=== PATIENT | female | born 1950 | race Caucasian/White ===

== ENCOUNTER 2017-10-24 05:26 | Day surgery (SDC) | payer MEDICARE ==
[~2017-10-24] VITALS: Ht 177.8 cm; Wt 87.0 kg
[2017-10-24] VITALS (9 sets, daily range): BP systolic 102–120; BP diastolic 71–97; PULSE 86–97; RESP 16–20; TEMP 97.6–98.9; O2SAT 90–100
[2017-10-24] MEDS ORDERED: SODIUM CHLORID 0.9% 500 ML IV PRN (06:00)
[2017-10-24] MEDS ORDERED: METOPROLOL TARTRATE 25 MG TAB PO PRN (06:00)
[2017-10-24] MEDS ORDERED: CHLORHEXIDINE GLUCONATE 2 % 1 PACK (2 CLOTHS) TOPICAL PRN (06:00)
[2017-10-24] MEDS ORDERED: POVIDONE IODINE 5% (ANTISEPSIS KIT) 4 APPLICATIONS EACH NARE PRN (06:00)
[2017-10-24] MEDS ORDERED: LACTATED RINGER'S 1000 ML IV PRN (06:00)
[2017-10-24] MEDS ORDERED: AMBI10TA PO (06:10)
[2017-10-24] MEDS ORDERED: SOMA350T PO (06:10)
[2017-10-24] MEDS ORDERED: FURO20TA PO (06:10)
[2017-10-24] MEDS ORDERED: METO25TA3 PO (06:10)
[2017-10-24] MEDS ORDERED: ECASA81 PO (06:10)
[2017-10-24] MEDS ORDERED: POTA10CA PO (06:10)
[2017-10-24] MEDS ORDERED: GABA600T PO (06:10)
[2017-10-24] MEDS ORDERED: LORA1TAB12 PO (06:10)
[2017-10-24] MEDS ORDERED: AMIO200T PO (06:10)
[2017-10-24] MEDS ORDERED: PRAV20TA2 PO (06:10)
[2017-10-24] MEDS ORDERED: PLAV75TA29 PO (06:10)
[2017-10-24] MEDS ORDERED: MIRT45TA PO (06:10)
[2017-10-24] MEDS ORDERED: NITR1SUB3 SL (06:10)
[2017-10-24] MEDS ORDERED: ceFAZolin 2 GM PREMIX 50 ML IV SCH (06:15)
[2017-10-24] MEDS ORDERED: VANCOMYCIN 1000 MG/NS 250 ML IV SCH ×2 (06:15)
[2017-10-24] MEDS ORDERED: POVIDONE IODINE 5% (ANTISEPSIS KIT) 4 APPLICATIONS EACH NARE SCH (06:15)
[2017-10-24] MEDS ORDERED: MUPIROCIN 2% OINT 1 APPLIC/GM SYR NASAL SCH (06:15)
[2017-10-24] MEDS: NS 1000 ML IV SCH (06:15)
[2017-10-24] MEDS ORDERED: LORazepam 1 MG TAB SL SCH (06:15)
[2017-10-24] MEDS ORDERED: CHLORHEXIDINE GLUCONATE 2 % 1 PACK (2 CLOTHS) TOPICAL SCH (06:15)
[2017-10-24 06:50] LABS: AUTOMATED NEUTROPHIL # 3.7 TH/MM3 (1.8-7.7); BASOPHIL % 0.8 % (0.0-2.0); EOSINOPHIL # 0.1 TH/MM3 (0-0.4); HEMATOCRIT 39.1 % (35.0-46.0); HEMOGLOBIN 13.2 GM/DL (11.6-15.3); LYMPH % 33.1 % (9.0-44.0); LYMPHOCYTE # 2.1 TH/MM3 (1.0-4.8); MEAN CORPUSCULAR HEMOGLOBIN 32.1 PG (27.0-34.0); MEAN CORPUSCULAR HGB CONC 33.8 % (32.0-36.0); MEAN PLATELET VOLUME 8.6 FL (7.0-11.0); MONO % 5.6 % (0.0-8.0); MONOCYTE # 0.4 TH/MM3 (0-0.9); NEUT % 58.5 % (16.0-70.0); PLATELET COUNT 197 TH/MM3 (150-450); RED BLOOD COUNT 4.11 MIL/MM3 (4.00-5.30); RED CELL DISTRIBUTION WIDTH 15.2 % (11.6-17.2); WHITE BLOOD COUNT 6.3 TH/MM3 (4.0-11.0)
[2017-10-24 07:06] LABS: INTERNATIONAL NORMALIZED RATIO 1.1 RATIO; PROTHROMBIN TIME - PATIENT 10.9 SEC (9.8-11.6)
[2017-10-24 07:08] LABS: BICARBONATE 27.7 MEQ/L (21.0-32.0); CALCIUM 8.5 MG/DL (8.5-10.1); CREATININE 1.3 MG/DL (0.50-1.00)
[2017-10-24] MEDS ORDERED: LIDOCAINE HCL 2% 50 ML VIAL ONE (07:44)
[2017-10-24] MEDS ORDERED: VANCOMYCIN 500 MG VIAL ONE (07:44)
--- NOTE | 2017-10-24 08:19 | CATHPROC ---
[facility] HIS Report Study Information Study Number Admission Scheduled Start Study Start [id number] Oct 24 2017 5:26AM 10/24/2017 Oct 24 2017 6:52AM [facility] Electrophysiology Study Admit Source Facility Department Other [facility] - Airway Controller Physician and Clinical Staff Initial Diana Durand Compensation Associate Gisele Abdullahi,THREAD CLIPPER Recorder Sofi Landry ,MARBELLAN Scrub Natividad Bella,RT(R) TECH2 Equipment Time Intervention Manager Description Size Mfg Part Number Used/Scraped [id number] 06:55 MEDLINE INDUSTRIES PACK, CCL CUSTOM * Used *[id number] 06:55 MEDLINE PACER HIDALGO, LIMB * 2530 *[id number] Used [id number] 07:33 NAMIC TUBING, HIGH PRESSURE 48" 48" Used *[id number] 06:55 SMALL MEDICAL BLANKET,WARM AIR CCL * Used *[id number] 06:57 [employer] MED[employer] CATHETER, JSN, QUAD FR 5 Used *[id number] [id number] 06:57 [employer] MED[employer] CATHETER, JSN, QUAD FR 5 Used *[id number] 06:57 [employer] MEDICAL CATHETER, JSN, QUAD FR 5 Used *[id number] 06:57 [employer] MEDICAL CATHETER, JSN, QUAD FR 5 Used *[id number] 06:57 [employer] MED[employer] SHEATH, EPS, FR5 FAST CATH FR 5 Used *[id number] 06:57 [employer] SHEATH, EPS, FR5 FAST CATH FR 5 Used *[id number] 06:57 [employer] MED[employer] SHEATH, EPS, FR5 FAST CATH FR 5 Used *[id number] 07:34 [employer] MED[employer] SHEATH, EPS, FR6 FAST CATH FR 6 Used *[id number] Labs Hgb (g/dl) Hct (%) RBC (MIL/MM3) WBC (l/cumm) Platelets (thousands) 11.60-17.00 35.00-51.00 4.00-5.90 4.00-11.00 150.00-450.00 13.2 39.1 4.1 6.3 197 Medication Medication Total Dose (Bolus/Oral) Medication Total Dosage/Unit 1% XYLOCAINE 20 mL Medications (Bolus/Oral) Medication Time Given Dosage/Unit Administered By Reason 1% XYLOCAINE 10/24/2017 7:58:42 AM 20 mL Diana Dupont 20 mL 1% XYLOCAINE given in lab by Diana Dupont in Right Groin via Subcutaneous. Medication (Drip) Medication Time Given Dosage/Unit Concentration/Unit Diluent (ml) Solution IV Solutions 10/24/2017 7:32:08 AM 50 mL (IV) NaCl .9 Patient arrived on IV Solutions in Left Forearm via Peripheral IV. Pump/Drip Flow using NaCl .9 at kv o. Ordered by Diana Dupont. Initial Case Assessment Cardiovascular HR Rhythm NIBP Chest Pain 91 sr 122/78 0 Edema Present Skin color Skin None Normal Warm Dry Circulatory - Lower Extremities Color Lower Right Color Lower Left Normal Normal Neurological State Oriented to time-place- Alert Moves all extremities person Respiration - General Respiration Rate SpO2 (%) O2 (lpm) (B/min) 16 97 0 Chronological Log Time Study Chronological Log 7:15:26 Patient arrived via Bed. 7:16:30 Patient Name, D.O.B, / Armband Verified By R.N. 7:16:33 Consent signed by the physician and the patient and verified by the Airway Controller staff. 7:25:39 Anesthesia at bedside. Assumes care of patient. See anesthesia flowsheet for Q5min vitals 7:26:49 Patient has been NPO for More than 6Hrs. 7:27:55 Skin Breakdown- none per patient 7:28:14 Patient Warmer Placed on the Table. 7:29:21 Disposable Defibrillator Pads Placed On Patient. Assessment: Initial Case, HR=91 BPM, Rhythm=sr, HBSH=394/78 mmhg, Chest Pain=0, Edema=None, [place] r=Normal, Skin = Warm, Dry Lower Right Extremities: Color=Normal 7:29:37 Lower Left Extremities: Color=Normal Neurological: State=Alert, Ox3, NETTLES Respiration: Resp=16 B/min, SpO2=97 %, O2=0 lpm 7:30:32 Carson Prominences Protected 7:31:39 A # 22 IV was noted in the Forearm (left). Grade = 0 Patient arrived on IV Solutions in Left Forearm via Peripheral IV. Pump/Drip Flow using NaCl .9 at kvo. Ordered by 7:32:08 Diana Dupont. 7:35:06 History and physical on the chart or being dictated. 7:35:12 Table restraints applied according to hospital policy 7:40:01 Bilateral groins prepped with 2% chlorhexidine, and draped after a 3 minute waiting time. 7:48:22 MD paged 7:48:35 Reference ECG taken 7:48:57 MD responded 7:53:01 MD arrived. Time Out. Correct patient, procedure, procedure equipment, site and side verified with physician present. Time 7:58:00 concurred by MD, individual staff and BUDGET TECHNICIAN. Time Out #2 - Consents verified, patient in correct position, all results are labled and display ed, safety precautions 7:58:27 taken, antibiotics administered. Time out concurred by MD, individual staff and BUDGET TECHNICIAN in procedur e 7:58:40 Case Start 7:58:42 20 mL 1% XYLOCAINE given in lab by Diana Dupont in Right Groin via Subcutaneous. 8:00:00 Vascular access was obtained in the Fem Vein (right). 8:00:05 Vascular access was obtained in the Fem Vein (right). 8:00:10 Vascular access was obtained in the Fem Vein (right). 8:00:15 Vascular access was obtained in the Fem Vein (right). 8:00:48 A SHEATH, EPS, FR5 FAST CATH FR 5 was advanced into the Fem Vein (right) using the Modified Seldinger technique. 8:00:57 A SHEATH, EPS, FR5 FAST CATH FR 5 was advanced into the Fem Vein (right) using the Modified Seldinger technique. 8:01:01 A SHEATH, EPS, FR5 FAST CATH FR 5 was advanced into the Fem Vein (right) using the Modified Seldinger technique. 8:01:03 A SHEATH, EPS, FR6 FAST CATH FR 6 was advanced into the Fem Vein (right) using the Modified Seldinger technique. A CATHETER, JSN, QUAD FR 5 was advanced vis Fem Vein (right) and placed in the HIS. Placement wa carla visually 8:02:42 confirmed under fluoroscopy. A CATHETER, JSN, QUAD FR 5 was advanced vis Fem Vein (right) and placed in the CS. Placement was visually 8:05:18 confirmed under fluoroscopy. A CATHETER, JSN, QUAD FR 5 was advanced vis Fem Vein (right) and placed in the RVA. Placement wa carla visually 8:06:00 confirmed under fluoroscopy. A CATHETER, JSN, QUAD FR 5 was advanced vis Fem Vein (right) and placed in the HRA. Placement wa s visually 8:07:10 confirmed under fluoroscopy. 8:08:20 EP study in progress 8:15:22 EP study complete 8:15:53 Catheter(s) removed without difficulty 8:18:06 NOTE: This patient is undergoing an additional procedure while still in the Cardiac Airway Controller . End Study - Contrast Media Used In Study Contrast Total Opened (mL) Total Used (mL) Total Wasted (mL) Omnipaque 0 0 0 End Study - Radiation Exposure Fluoro Time (minutes) 2.8 End Study - Patient Disposition Complications No
[2017-10-24] MEDS ORDERED: MIDAZOLAM HCL 2 MG/2 ML VIAL ONE (09:08)
--- NOTE | 2017-10-24 09:28 | PD.CARD ---
SINGLE CHAMBER DEFIB IMPLANT PROCEDURE DATE: Oct 24, 2017 NYHA Classification: Class II (Mild) Prevention: Primary Single Chamber Defib Implant PROCEDURE: Single chamber defibrillator implantation and device testing. INDICATIONS: Ms. Goddard is a 66 -year-old female with hx of congestive heart failure, coronary artery disease ejection fraction 20%, coronary artery disease , referred defibrillator implantation for sudden prevention. The risks, the nature and the benefit of the procedure are clearly stated to her . Risks include pneumothorax, cardiac perforation, stroke and even . She understood and agreed to proceed. PROCEDURE: As written, informed consent was obtained prior to electrophysiology, the patient was kept on the table where she was prepped and draped in the sterile fashion. Conscious sedation was initiated and maintained throughout the procedure by anesthesiologist. Once sedation was verified, the left infraclavicular area was anesthetized with 2% Xylocaine. Using modified Seldinger technique, the left subclavian vein was cannulated on one occasion and one guide wire was advanced. Then, using #11 blade scalpel, a 3-cm incision was made two fingerbreadths below left clavicle. This incision was then taken down to the deep fascial layer using Bovie cautery and blunt dissection. Into the inferomedial direction, a device pocket was dissected, then the wire was dissected into the pocket. A 2-0 Vicryl suture was placed around the wires to prevent bleeding. At this point, over the wire, the 9- Citizen Of [place] dilator and introducer was advanced. As dilator and wire were removed, an active fixation right ventricular pacing, sensing and defibrillatory lead was advanced. After adequate pacing and sensing thresholds were obtained, the lead was secured in the pocket with #2 Ethibond suture. At that point, the pocket was copiously irrigated with antibiotic solution. The leads were connected to the generator and placed into the pocket. I did proceed with wound closure. The deep fascial layer was approximated with 2-0 Vicryl suture in a continuous fashion. The subcutaneous layer was approximated with 2-0 Vicryl suture in a continuous fashion. The subcuticular layer was approximated with 2-0 Vicryl suture in a continuous fashion. Dermabond adhesive was applied to the wound, followed by a sterile pressure dressing. There was no complication. The patient tolerated procedure. Blood loss minimal. 1. Implanted Hardware: The implanted defibrillator generator is a Biotronik, model number 632018, serial number [id number]. The right ventricular pacing, sensing and defibrillatory lead is a SitatByoot.comroniWeaved model number 661101, serial number [id number]. 2. Thresholds: The right ventricular pacing threshold in the bipolar mode was 0.9 volts at 0.5 milliseconds, lead impedance 680 ohms and R-wave at 6.1 mV. Sensing P wave @ 5.8. 3. Settings: The device set in VVI 40 defibrillatory portion for two zones, one zone for ventricular tachycardia between 160 and 240 beats per minute. Initial therapy consists of one burst of ATP, one ramp, 81%, 10 pulse, 10 millisecond decremental, followed by 20, then 30 and all subsequent shocks at 40 joules defibrillatory shock, the second zone for ventricular fibrillation above 240 beats per minute, first therapy at 30 and all subsequent shocks at 40 joules defibrillatory shock. CONCLUSIONS: Successful defibrillator implantation. COMMENT AND RECOMMENDATIONS: The patient will be transferred to the telemetry unit, will be observed and when stable can be discharged home. Diana Dupont MD Oct 24, 2017 09:28
--- NOTE | 2017-10-24 09:31 | CATHPROC ---
[facility] HIS Report Study Information Study Number Admission Scheduled Start Study Start [id number] Oct 24 2017 5:26AM 10/24/2017 Oct 24 2017 8:20AM [facility] [place] [facility] Cardiac Pacer/ICD Admit Source Facility Department Other [facility] - First Helper Physician and Clinical Staff Initial Diana Durand Vice President Of Marketing Natividad Bella,RT(R) TECH2 Other Anesthesia, IT HELP DESK MANAGER Recorder Sofi Landry ,MARBELLAN Scrub Gisele Abdullahi RCIS Procedures Performed Procedure Lead Insertion Equipment Time Ice Carver Description Size Mfg Part Number Used/Scraped DEFIBRILLATOR, INTICA 7 VR-T 08:59 BIOTRONIK VVE-VDDR [id number] Used DX 08:50 BIOTRONIK LEAD, PLEXA PRO-MRI DF 65/15 [id number] Used DERMABOND, ADHESIVE SKIN [id number] 08:34 CORDIS/PACER * Used GLUE MINI *[id number] TP-1103 08:34 MEDLINE INDUSTRIES SUTURE, STRIP PLUS 1/2" * Used *[id number] 08:34 LiquidPlanner PACER HIDALGO, LIMB * 2530 *[id number] Used [id number] 08:34 LiquidPlanner PACER PACK, PACER CUSTOM * Used *[id number] 08:34 [employer] PACER SAFE SHEATH, FR8, 13CM FR 8 [id number] Used 08:33 Needle Sponge Count 2 22 Used 08:33 Needle Sponge Count 2 2 Used 08:33 Needle Sponge Count 20 200 Used SUTURE, 0 ETHIBOND [CT1] (CX21D), 8pk SUTURE, 2-0 VICRYL [CT1] ([id number]) SUTURE, 2-0 VICRYL [CT1] ([id number]) [id number] 08:34 [place] MEDICAL BLANKET,WARM AIR CCL * Used *[id number] [facility], ELECTROSURGICAL 08:34 * [id number] *[id number] Used SURGICAL GROUNDING ORANGE 5745-6017 08:34 [employer] ALEXANDRA. / * Used *87545 Equipment Model, Serial, Lot Number and Expiration Data Description Model Number Serial Number Lot Number Expiration Date DEFIBRILLATOR, INTICA 7 VR-T DX [id number] 01-18-2019 LEAD, PLEXA PRO-MRI DF 65/15 [id number] 09-20-2019 Medication Medication Total Dose (Bolus/Oral) Medication Total Dosage/Unit 2% XYLOCAINE 10 mL Medications (Bolus/Oral) Medication Time Given Dosage/Unit Administered By Reason 2% XYLOCAINE 10/24/2017 8:47:38 AM 10 mL Diana Dupont 10 mL 2% XYLOCAINE given in lab by Anesthesia, IT HELP DESK MANAGER in Left chest via Subcutaneous. Ordered by Diana Dupont. Medication (Drip) Medication Time Given Dosage/Unit Concentration/Unit Diluent (ml) Solution ANCEF 10/24/2017 8:17:57 AM 2 g 2 g ANCEF given in lab by Anesthesia, IT HELP DESK MANAGER in Left Forearm via Peripheral IV. Ordered by Andres Dupont VANCOMYCIN DRIP 10/24/2017 8:17:10 AM 1 g 1 g VANCOMYCIN DRIP given in lab by Anesthesia, IT HELP DESK MANAGER in Left Forearm via Peripheral IV. Ordered by Diana Allred. Final Case Assessment Cardiovascular HR Rhythm NIBP Chest Pain 92 sr 110/81 0 Edema Present Skin color Skin None Normal Warm Dry Circulatory - Lower Extremities Color Lower Right Color Lower Left Normal Normal Neurological State Oriented to time-place- Lethargic Moves all extremities person Respiration - General Respiration Rate SpO2 (%) O2 (lpm) (B/min) 12 98 2 Chronological Log Time Study Chronological Log 8:17:10 1 g VANCOMYCIN DRIP given in lab by Anesthesia, IT HELP DESK MANAGER in Left Forearm via Peripheral IV. Ord ered by Diana Dupont. 8:17:57 2 g ANCEF given in lab by Anesthesia, IT HELP DESK MANAGER in Left Forearm via Peripheral IV. Ordered by Diana Allred. 8:23:02 Initial procedure has been completed. Beginning additional procedure. 8:23:03 NOTE: This patient is undergoing an additional procedure while still in the Cardiac Cath La b. 8:23:04 Disposable Defibrillator Pads remain On Patient. 8:23:13 Bovie ground pad applied to: right thigh 8:23:42 Anesthesia remains at bedside. See anesthesia flowsheet for 5 min vitals 8:28:38 2% CHLORHEXIDINE GLUCONATE WASH AND NASAL SWIPE DONE PRIOR TO PROCEDURE. 8:29:06 Bilateral Upper Chest Prepped Times Two and draped after a 3 min. waiting time. 8:30:20 Reference ECG taken First Sponge And Instrument Count Done by Gisele Abdullahi RCIS. 8:32:36 Hypo's: 2, Sponges: 20, Bovie/scratch: 2 Sutures: 10, Blades: 1, Instruments: 26, Syveck Patches: 0 Time Out. Correct patient, procedure, procedure equipment, site and side verified with physici an present. Time 8:46:29 concurred by MD, individual staff and IT HELP DESK MANAGER. Time Out #2 - Consents verified, patient in correct position, all results are labled and displ ayed, safety precautions 8:46:30 taken, antibiotics administered. Time out concurred by MD, individual staff and IT HELP DESK MANAGER in proced ure 8:46:32 Case Start 8:47:38 10 mL 2% XYLOCAINE given in lab by Anesthesia, IT HELP DESK MANAGER in Left chest via Subcutaneous. Ordered by Diana Dupont. 8:48:12 Vascular access was obtained in the Subclav. Vein (Lft. 8:48:58 Surgical Incision Made. 8:49:05 A pocket was created at the L Upper Chest. 8:51:11 Two antibiotic sponges put into the surgical pocket. 8:52:03 A LEAD, PLEXA PRO-MRI DF 65/15 was inserted and positioned in the RV. 8:54:17 Lead placement verified under fluoroscopy 8:57:45 The RV lead impedance and threshold being tested. 9:02:36 The RV lead was sutured to the fascia. 9:03:48 Antibiotic sponges removed from the surgical pocket. 9:04:00 Pocket flushed with antibiotic solution 9:04:42 A DEFIBRILLATOR, INTICA 7 VR-T DX VVE-VDDR was connected and placed in the pocket. 9:06:15 The pocket is being closed. Second Sponge And Instrument Count Done by Natividad Bella, RT(R) TECH2. 9:06:39 Hypo's: 2, Sponges: 20, Bovie/scratch: 2 Sutures: 10, Blades: 1, Instruments: 26, Syveck Patches: 0 9:08:42 The pocket was closed. 9:09:05 Case End Final Sponge And Instrument Count Done by Natividad Bella, RT(R) TECH2. 9:09:47 Hypo's: 2, Sponges: 20, Bovie/scratch: 2 Sutures: 10, Blades: 1, Instruments: ~INSTRU~, Syveck Patches: 0 9:10:11 Implant Procedure was performed. 9:10:15 A ICD Implant . (Single) 9:10:53 Steri-strips and a sterile dressing applied to site. Assessment: Final Case, HR=92 BPM, Rhythm=sr, NCZM=287/81 mmhg, Chest Pain=0, Edema=None, Color= Normal, Skin = Warm, Dry Lower Right Extremities: Color=Normal 9:12:52 Lower Left Extremities: Color=Normal Neurological: State=Lethargic, Ox3, NETTLES Respiration: Resp=12 B/min, SpO2=98 %, O2=2 lpm 9:13:57 A sling was placed on the affected arm. 9:14:02 No case complications noted. 9:14:04 Cine recording checked. 9:14:07 Holding Area notified of successful intervention. 9:14:12 Bedside Report will be given. 9:20:33 Sheath removed; pressure applied to access site. 9:30:54 Sterile dressing applied to site 9:35:20 Patient moved to stretcher End Study - Contrast Media Used In Study Contrast Total Opened (mL) Total Used (mL) Total Wasted (mL) Omnipaque 0 0 0 End Study - Radiation Exposure Fluoro Time (minutes) 1.8 End Study - Sheaths Sheaths Pulled By Sheath Hold Time (min) Natividad Bella 10 End Study - Patient Disposition Complications Transferred To No First Helper Holding
--- NOTE | 2017-10-24 11:48 | MA ---
cc: Diana Dupont MD 10/24/2017 PROCEDURE: Electrophysiology study, CS cannulation. INDICATION: Mrs. Goddard is a 66-year-old -[place]ij[place] female with history of congestive heart failure, coronary artery disease, cardiomyopathy, ejection fraction 20%, referred for electrophysiology study and device insertion. The risks, the nature and the benefit of the procedure are clearly stated to her. The risks include pneumothorax, cardiac perforation, stroke, need for open heart surgery and even . The patient understood and agreed to proceed. PROCEDURE: After written informed consent was obtained, the patient was brought to the EP lab where she was prepped and draped in the usual sterile fashion. Conscious sedation was initiated and maintained throughout the procedure by anesthesiologist. Once sedation was verified, the right inguinal area was anesthetized with 2% Xylocaine. Using modified Seldinger technique, the right femoral vein was cannulated on four occasions, four guidewires were advanced. Over the wire 3, 5 and a 6-Maltese Hemaquet were advanced. Then under fluoroscopic guidance 3.5 and 6-Maltese Hemaquet, 4.5 Maltese Lyndsay curved quadripolar electrophysiology catheter were advanced and placed around the His, upper right atrium, coronary sinus and left ventricular apex. Basic interval was measured and was within normal limit. At this point atrial pacing protocol was performed. Atrial pacing protocol consists of incremental atrial pacing as well as program stimulation with 410 cycle length and a 25 stimuli delivered. No tachyarrhythmia was induced. Then ventricular pacing protocol was performed. Ventricular pacing protocol consists of incremental ventricular pacing as well as program stimulation with 410 cycle length and up to 3 access stimuli delivered. ventricular tachycardia was induced. At that point heart rate was in the 110, 100. There is no need for isuprel infusion. The patient getting unstable. I decided to terminate the study. All catheters were removed. No incident report. The patient tolerated the procedure. She will be kept on the table and a single-chamber defibrillator will be implanted for sudden primary prevention. Blood loss was minimal. 1. Electrocardiogram. At baseline the patient was in sinus rhythm. Postprocedure electrocardiogram was unchanged. 2. Basic interval. Basic interval was around 680 millisecond, AH at 96 and HV around 50 millisecond. 3. Atrial pacing protocol. Wenckebach of the node was around 400 millisecond. ERP of the node 600-220 millisecond. No tachyarrhythmia was induced. 4. Ventricular pacing protocol. There was no VA conduction. ventricular tachycardia was induced. CONCLUSION: Negative electrophysiology study for suspect ventricular tachyarrhythmia. COMMENT AND RECOMMENDATION: The patient is going to be kept on the table. single chamber defibrillator will be implanted for sudden primary prevention. Diana Dupont MD HS/TL/rr , 09:40 AM , 10:32 AM
[2017-10-24] MEDS ORDERED: LIDOCAINE HCL 1% PF 5 ML SYRINGE OTHER ONE (12:00)
[2017-10-24] MEDS ORDERED: PROPOFOL 200 MG/20 ML AMP IV ONE (12:00)
[2017-10-24] MEDS ORDERED: KETOROLAC TROMETHAMINE 10 MG TAB PO PRN ×2 (13:30→18:15)
[2017-10-24] MEDS: ONDANSETRON HCL 4 MG/2 ML VIAL IV PUSH PRN (16:05)
[2017-10-24] MEDS ORDERED: HYDROmorphone HCL PF 2 MG/ML VIAL IV PRN (18:30)
[2017-10-24] MEDS: HYDROmorphone HCL PF 2 MG/ML VIAL IV PRN (18:32)
--- NOTE | 2017-10-24 18:45 | EKG ---
Date Performed: 10/24/2017 Time Performed: 07:07:00 PTAGE: 66 years EKG: Sinus rhythm with PVC(s) Leftward axis Possible inferior infarct - age undetermined Possible anterior infarct - a ge undetermined Lateral T wave changes are nonspecific Abnormal ECG NO PREVIOUS TRACING DOCTOR: Gene Olivarez Interpretating Date/Time 10/24/2017 18:42:29
[2017-10-24] MEDS ORDERED: ZOLPIDEM TARTRATE 10 MG TAB PO PRN (22:45)
[2017-10-24] MEDS ORDERED: ZOLPIDEM TARTRATE 10 MG TAB PO SCH (22:45)
[2017-10-24] MEDS ORDERED: GABAPENTIN 300 MG CAP PO SCH (22:45)
[2017-10-24] MEDS ORDERED: PRAVASTATIN SOD 40 MG TAB PO SCH (22:45)
[2017-10-25] VITALS (15 sets, daily range): BP systolic 97–171; BP diastolic 66–97; PULSE 60–104; RESP 18–20; TEMP 98.4–99.1; O2SAT 96–98
[2017-10-25] MEDS: HYDROmorphone HCL PF 2 MG/ML VIAL IV PRN ×2 (00:16→06:50)
[2017-10-25] MEDS: NS 1000 ML IV SCH (06:15)
[2017-10-25] MEDS ORDERED: CEPH-460 PO (08:13)
--- NOTE | 2017-10-25 08:18 | PD.CARD.PN ---
Subjective Subjective Remarks Feels okay. Objective Medications Current Medications Medications (Trade) Dose Ordered Sig/Naresh Route Start Time Stop Time Status Last Admin Lactated Ringer's 1,000 ml @ 30 mls/hr Q24H PRN IV 10/24/17 06:00 10/27/17 05:59 Sodium Chloride 500 ml @ 30 mls/hr [id number] PRN IV 10/24/17 06:00 10/27/17 05:59 (Lopressor) 25 mg SOIL CONSERVATION AIDE PRN PO 10/24/17 06:00 10/27/17 05:59 (Betadine 5% Antisepsis Kit) 1 applic SOIL CONSERVATION AIDE PRN EACH NARE 10/24/17 06:00 10/27/17 05:59 (Chlorhexidine 2% Cloth) 3 pack SOIL CONSERVATION AIDE PRN TOPICAL 10/24/17 06:00 10/27/17 05:59 Sodium Chloride 1,000 ml @ 30 mls/hr Q24H IV 10/24/17 06:15 10/24/17 06:15 Cefazolin Sodium/ Dextrose 50 ml @ 100 mls/hr SOIL CONSERVATION AIDE IV 10/24/17 06:15 10/27/17 06:14 10/24/17 08:17 Vancomycin HCl 1000 mg/Sodium Chloride 250 ml @ 250 mls/hr SOIL CONSERVATION AIDE IV 10/24/17 06:15 10/27/17 06:14 10/24/17 08:17 (Ativan) 1 mg SOIL CONSERVATION AIDE SL 10/24/17 06:15 10/27/17 06:14 (Betadine 5% Antisepsis Kit) 2 applic SOIL CONSERVATION AIDE EACH NARE 10/24/17 06:15 10/27/17 06:14 (Bactroban Nasal 2% Oint) 1 applic SOIL CONSERVATION AIDE NASAL 10/24/17 06:15 10/27/17 06:14 (Chlorhexidine 2% Cloth) 3 pack SOIL CONSERVATION AIDE TOPICAL 10/24/17 06:15 10/27/17 06:14 (Zofran Inj) 4 mg Q4H PRN IV PUSH 10/24/17 16:00 10/24/17 16:05 (Toradol) 10 mg Q6H PRN PO 10/24/17 18:15 (Dilaudid Pf Inj) 0.5 mg Q6H PRN IV 10/24/17 18:30 (Dilaudid Pf Inj) 1 mg Q6H PRN IV 10/24/17 18:30 10/25/17 06:50 (Neurontin) 600 mg TID PO 10/25/17 09:00 (Pravachol) 40 mg DAILY PO 10/25/17 09:00 (Ambien) 10 mg HS PRN PO 10/24/17 22:45 Vital Signs / I&O Vital Signs Date Time Temp Pulse Resp B/P (MAP) Pulse Ox O2 Delivery O2 Flow Rate FiO2 10/25/17 07:57 99.1 99 18 97/71 (80) 98 10/25/17 06:44 60 171/66 (101) 10/25/17 06:00 86 10/25/17 05:00 84 10/25/17 04:00 98.6 90 20 106/68 (81) 96 10/25/17 04:00 88 10/25/17 03:00 85 10/25/17 02:00 88 10/25/17 01:00 92 10/25/17 00:00 98.6 93 20 118/80 (93) 97 10/25/17 00:00 86 10/24/17 23:00 87 10/24/17 21:00 86 10/24/17 20:00 90 10/24/17 20:00 98.9 91 20 120/78 (92) 100 10/24/17 19:00 91 10/24/17 15:09 97.6 87 16 107/72 (84) 96 10/24/17 15:00 97 10/24/17 13:00 90 10/24/17 12:50 98.1 90 16 112/97 (102) 90 10/24/17 09:45 92 I/O 10/24/17 10/24/17 10/24/17 10/25/17 10/25/17 10/25/17 07:00 15:00 23:00 07:00 15:00 23:00 Intake Total 240 ml Output Total 750 ml Balance -510 ml Intake Oral 240 ml Output Urine Total 750 ml Physical Exam GENERAL: Well-nourished, well-developed patient. SKIN: Warm and dry. Left chest wall incision well approximated without erythema or drainage. HEAD: Normocephalic. EYES: No scleral icterus. No injection or drainage. NECK: Supple, trachea midline. No JVD or lymphadenopathy. CARDIOVASCULAR: Regular rate and rhythm without murmurs, gallops, or rubs. RESPIRATORY: Breath sounds equal bilaterally. No accessory muscle use. GASTROINTESTINAL: Abdomen soft, non-tender, nondistended. EXTREMITIES: No cyanosis, or edema. NEUROLOGICAL: Awake, alert, and oriented x 3. Non-focal. Assessment and Plan Problem List: (1) Cardiomyopathy ICD Codes: I42.9 - Cardiomyopathy, unspecified Plan: EF 20%. No shortness of breath or edema. (2) S/P ICD (internal cardiac defibrillator) procedure ICD Codes: Z95.810 - Presence of automatic (implantable) cardiac defibrillator Plan: Status post ICD implantation for sudden cardiac prevention. If chest x-ray is negative for pneumothorax, discharge home. Follow-up with Dr. Dupont in 2 weeks per my discussion with him. Problem Qualifiers (1) Cardiomyopathy: Qualified Codes: I42.9 - Cardiomyopathy, unspecified Amy Salazar Oct 25, 2017 08:18
[2017-10-25] MEDS ORDERED: SACU1TAB PO (08:44)
[2017-10-25] MEDS: ONDANSETRON HCL 4 MG/2 ML VIAL IV PUSH PRN (08:48)
[2017-10-25] MEDS ORDERED: GABAPENTIN 300 MG CAP PO SCH (09:00)
[2017-10-25] MEDS ORDERED: PRAVASTATIN SOD 40 MG TAB PO SCH (09:00)
[2017-10-25] MEDS ORDERED: SACUBITRIL/VALSARTAN 24 MG-26 MG TAB PO SCH (09:00)
--- NOTE | 2017-10-25 10:02 | RADRPT ---
EXAM DATE/TIME: 10/25/2017 09:45 [place] COMPARISON: No previous studies available for comparison. INDICATIONS : Post device implant. MEDICAL HISTORY : Hypertension. Deep venous thrombosis. CAD. PAD. SURGICAL HISTORY : Pacemaker. ENCOUNTER: Subsequent ACUITY: 1 day PAIN SCORE: 5/10 LOCATION: Left chest FINDINGS: Pacemaker in good position. There is no pneumothorax. Lungs are clear.. The cardiomediastinal cont ours are unremarkable. Osseous structures are intact. CONCLUSION: Negative for pneumothorax. All Bertrand MD FACR on October 25, 2017 at 10:00 Board Certified Radiologist. This report was verified electronically.
== END 2017-10-25 11:35 | disposition home or self-care (01) ==
LOC: HCAT 05:26 → HDIC 05:27 → HCIS 12:50 → HCAT 10-25 11:35
PROVIDERS: ATTEND Internal Medicine Interventional Cardiology
DX: I11.0 Hypertensive heart disease with heart failure (principal); I50.9 Heart failure, unspecified; I47.2 Ventricular tachycardia; I42.0 Dilated cardiomyopathy; R53.83 Other fatigue; R06.00 Dyspnea, unspecified; I25.10 Atherosclerotic heart disease of native coronary artery without angina pectoris; Z79.01 Long term (current) use of anticoagulants; Z82.49 Family history of ischemic heart disease and other diseases of the circulatory system; Z87.891 Personal history of nicotine dependence
CPT/HCPCS: 00530; 33249; 71046; 80048; 85025; 85610; 85730; 86850; 86900; 86901; 93005; 93620; C1722; C1730; C1777; J0690; J1170; J2250; J2405; J3010; J3370; J7030; J7050